=== PATIENT | female | born 2000 | race Caucasian/White ===

== ENCOUNTER 2023-07-18 15:02 | Emergency (ER) | payer BC, SELFPAY ==
[2023-07-18 15:03] VITALS: BP 122/78; PULSE 108; RESP 18; TEMP 36.4; O2SAT 96; BMI 17.7
--- NOTE | 2023-07-18 15:15 | EDS_ITS ---
HPI <KEVON Scott - Last Filed: 07/18/23 15:56> History of Present Illness Chief Complaint: Back Narrative Narrative: 22-year-old female sent 3 days of burning and frequency and was diagnosed with UTI at [facility]. She was seen the day of onset and prescribed Bactrim and is also taking Azo and ibuprofen. Yesterday she started her menstrual cycle. Today she developed pain in her bilateral low back that radiates up towards both flank areas and she was told if she develop back pain to be seen in the ED. She has no abdominal pain. No fever, chills, nausea or vomiting. [facility] <KEVON Scott - Last Filed: 07/18/23 15:56> [facility] Medical History (Updated 07/18/23 @ 15:47 by KEVON Scott) UTI (urinary tract infection) Allergy/AdvReac Type Severity Reaction Status Date / Time No Known Allergies Allergy Verified 07/18/23 15:03 Social History Smoking Status: Never smoker ROS <KEVON Scott - Last Filed: 07/18/23 15:56> ROS ED ROS Narrative Constitutional: Negative for fever, chills, malaise. GI: Negative for abdominal pain, nausea, vomiting. : Positive for dysuria. EXAM <KEVON Scott - Last Filed: 07/18/23 15:56> Physical Exam Narrative Exam Narrative: CONST: Patient sitting in no acute distress. EYES: Normal inspection. NECK: Normal inspection. RESP: No respiratory distress, CTAB. CVS: Regular rate and rhythm, no murmur, no gallop. ABD: Soft and nontender, no guarding or rebound, nondistended. Back: Normal inspection, no CVA tenderness. SKIN: Color normal, no rash, warm, dry, intact. EXTREMITIES: Normal appearance, no pedal edema. NEURO: Alert and answering questions appropriately. PSYCH: Normal affect. Const Vital Signs: 07/18/23 15:03 Temperature 97.6 F L Temperature Source Temporal Pulse Rate 108 H Respiratory Rate 18 Blood Pressure 122/78 H Blood Pressure Mean 92 Pulse Ox 96 Oxygen Delivery Method Room Air <Dr. Vincent Griffin DO - Last Filed: 07/18/23 15:54> Physical Exam Const Vital Signs: 07/18/23 15:03 Temperature 97.6 F L Temperature Source Temporal Pulse Rate 108 H Respiratory Rate 18 Blood Pressure 122/78 H Blood Pressure Mean 92 Pulse Ox 96 Oxygen Delivery Method Room Air [facility] <KEVON Scott - Last Filed: 07/18/23 15:56> [facility] Narrative Medical decision making narrative: Patient has been on Bactrim for 3 days for UTI. She developed back pain today so presents for reevaluation. She is reproducible tenderness in the lower lumbar region. No CVA tenderness. No abdominal tenderness. Urinalysis shows her UTI has resolved. She should complete the Bactrim and I recommended ibuprofen and Tylenol for back pain which is most likely musculoskeletal. She was discharged in stable condition. Lab Data Labs: Laboratory Results - last 24 hr 07/18/23 15:28 Urine Color Yellow Urine Clarity Clear Urine pH 6.5 Ur Specific [place] 1.015 Urine Protein 15 H Urine Glucose (UA) Normal Urine Ketones Negative Urine Occult Blood 25 H Urine Nitrite Negative Urine Bilirubin Negative Urine Urobilinogen Normal Ur Leukocyte Esterase Negative Urine RBC 0 SEEN Urine WBC 0-5 SEEN Ur Squamous Epith Cells 0-5 SEEN Urine Bacteria 0 SEEN Urine Mucus 0 SEEN <Dr. Vincent Griffin DO - Last Filed: 07/18/23 15:54> [facility] Lab Data Attestation: I reviewed the patient's lab results. Labs: Laboratory Results - last 24 hr 07/18/23 15:28 Urine Color Yellow Urine Clarity Clear Urine pH 6.5 Ur Specific [place] 1.015 Urine Protein 15 H Urine Glucose (UA) Normal Urine Ketones Negative Urine Occult Blood 25 H Urine Nitrite Negative Urine Bilirubin Negative Urine Urobilinogen Normal Ur Leukocyte Esterase Negative Urine RBC 0 SEEN Urine WBC 0-5 SEEN Ur Squamous Epith Cells 0-5 SEEN Urine Bacteria 0 SEEN Urine Mucus 0 SEEN Treatment and Re-Evaluation :: I have personally performed a face to face assessment of the patient and have reviewed the JOCELYNN Note. I performed a substantive portion of the visit including all aspects of the following. My desir findings include: History is 22-year-old female seen at urgent care diagnosed with UTI and was placed on Bactrim and Pyridium. Patient returned the next day had blood work drawn showed a white count of 13 normal creatinine. Urinalysis grew out 10-50,000 colony-forming units of E. coli. Patient's been taking the antibiotic. No fevers no nausea no vomiting. She has subsequently began her period. She states that yesterday and today she developed low back pain. She is she was told that if she developed back pain to get evaluated. Patient denies any leg symptoms. Exam is patient points to the very low lumbar region bilaterally extending up to the CVA region. No CVA tenderness on my examination but does note some mild tenderness to the lumbar paraspinal musculature. There is no apparent rashes. Abdomen benign. Patient clinically appears well. Medical Decison Making repeat urinalysis demonstrates resolution of the urinary tract infection. I think that her back pain is most likely musculoskeletal in nature and should resolve with conservative treatment/time. Discharge Plan Triage Chief Complaint: Back Other Complaint: Complaint ED Midlevel Provider: Iza Champion ED Provider: Vincent Griffin Dx/Rx/DC Orders Clinical Impression: Musculoskeletal back pain Instructions: Back Basics: A Healthy Spine Primary Care Provider: Care Physician,No Primary Referrals: Care Physician,No Primary [Primary Care Provider] - Activity Restrictions/Additional Instructions: Complete the Bactrim and alternate Tylenol and Motrin every 3 hours as needed for pain. Disposition Disposition: Home, Self Care
[2023-07-18 15:30] LABS: Bacteria 0 SEEN /hpf (None Seen); Mucous, Urine 0 SEEN /hpf (<or=2+); Red Blood Cells-Urine 0 SEEN /hpf (0-5)
[2023-07-18 15:33] LABS: Color, Urine Yellow (Yellow); Glucose, Dipstick Normal (Normal); Ketone-Dipstick Negative (Negative); Leukocyte Esterase-Dipstick Negative /ul (Negative); Nitrite-Dipstick Negative (Negative); Occult Blood-Urine 25 /ul (Negative); Protein-Dipstick 15 mg/dl (Negative); Specific Gravity, Urine 1.015 (1.002-1.030); Urine Bilirubin Dipstick Negative (Negative); Urine Clarity Clear (Clear); Urine Urobilinogen Normal (Normal); Urine pH 6.5 (5.0 - 8.0)
[2023-07-18 15:46] LABS: Squamous Epithelial Cells - UA 0-5 SEEN /hpf (5-10); White Blood Cells 0-5 SEEN /hpf (0-5)
[2023-07-18 15:57] VITALS: BP 120/75; PULSE 95; RESP 16; TEMP 36.6; O2SAT 100
== END 2023-07-18 15:57 | disposition home or self-care (01) ==
PROVIDERS: Physician Assistant; Emergency Provider Emergency Medicine; Visit Provider Emergency Medicine
DX: M54.50 Low back pain, unspecified (principal)
CPT/HCPCS: 81001; 99283